=== PATIENT | male | born 1980 ===

== ENCOUNTER 2023-10-17 06:25 | Day surgery (SDC) | payer OTHER, SELFPAY ==
[2023-10-17] VITALS (8 sets, daily range): BP systolic 103–126; BP diastolic 68–86; BMI 33.3
[2023-10-17] MEDS: NORMOSOL-R 1000 IV (07:35)
[2023-10-17] MEDS: DILAUDID 0.5 MG IV (10:06)
[2023-10-17] MEDS: ROXICODONE 5 MG PO (10:35)
== END 2023-10-17 11:10 | disposition home or self-care (01) ==
LOC: SDS 06:25
PROVIDERS: ATTENDING PHYSICIAN Specialist
DX: Z30.2 Encounter for sterilization (principal); Z98.890 Other specified postprocedural states
CPT/HCPCS: 55250; 88302